=== PATIENT | male | born 1990 | race Caucasian/White ===

== ENCOUNTER 2020-09-06 17:25 | Emergency (ER) | payer BC ==
[~2020-09-06] VITALS: Ht 177.8 cm; Wt 113.4 kg
--- OUTSIDE RECORDS SUMMARY | ~2020-09-06 | XMS | Encounter Summary ---
Demographics + + + | Address | [address] | | | [place] [address] | + + + | Home Phone | | + + + | Preferred Language | Unknown | + + + | Marital Status | Single | + + + | Jewish Affiliation | Unknown | + + + | Race | White | + + + | Ethnic Group | Not or | + + + Author + + + | Author | [facility] | | | and [place] | + + + | Organization | [facility] | | | and [place] | + + + | Address | Unknown | + + + | Phone | Unavailable | + + + Support + + +---------+ + | Name | Relationship | Address | Phone | + + +---------+ + | Cecelia Well | ECON | Unknown | | + + +---------+ + Care Team Providers + +------+ + | Care Food Safety Technician Name | Role | Phone | + +------+ + | Karol Cordoba | PCP | | + +------+ + Reason for Visit +--------+--------+ + | Reason | Onset | Comments | | | Date | | +--------+--------+ + | Other | 09/21/ | opened in error | | | 2019 | | +--------+--------+ + Encounter Details +--------+ + + + + | Date | Type | Department | Care Team | Description | +--------+ + + + + | 09/21/ | Telephone | [facility] | Garrett Liza | Melina (opened in | | 2019 | | ENDOCRINOLOGY [address] | M, Traffic Circuit Engineer | bradly) | | | | [address] [address] | | | | | | [place] | | | | | | [address] | | | | | | [phone] | | | +--------+ + + + + Social History + +-------+ +--------+------+ | Tobacco Use | Types | Packs/Day | Years | Date | | | | | Used | | + +-------+ +--------+------+ | Never Smoker | | | | | + +-------+ +--------+------+ + + + | Sex Assigned at | Date Recorded | | | | + + + | Not on file | | + + + documented as of this encounter Miscellaneous Notes Telephone Encounter - Liza Tucker Traffic Circuit Engineer - 09/27/2019 9:24 AM PSTOpened in error A M PSTdocumented in this encounter Plan of Treatment Not on filedocumented as of this encounter Visit Diagnoses Not on filedocumented in this encounter"
--- OUTSIDE RECORDS SUMMARY | ~2020-09-06 | XMS | Encounter Summary ---
Demographics + + + | Address | [address] | | | [place] [address] | + + + | Home Phone | | + + + | Preferred Language | Unknown | + + + | Marital Status | Single | + + + | Holiness Affiliation | Unknown | + + + | Race | White | + + + | Ethnic Group | Not or | + + + Author + + + | Author | [facility] | | | and [place] | + + + | Organization | [facility] | | | [...] Team Providers + +------+ + | Care Bead Picker Name | Role | Phone | + +------+ + | Karol Cordoba | PCP | | + +------+ + Encounter Details +--------+ + + + + | Date | Type | Department | Care Team | Description | +--------+ + + + + | 12/12/ | Orders Only | [facility] | Bunny Chandler, | | | 2019 | | ENDOCRINOLOGY [address] | MD [address] | | | | | [place] | [place], | | | | | [place] | [place] [address] | | | | | [address] | [phone] | | | | | [phone] | | | +--------+ + + + [...] + + documented as of this encounter Plan of Treatment Not on filedocumented as of this encounter Visit Diagnoses Not on filedocumented in this encounter"
--- OUTSIDE RECORDS SUMMARY | ~2020-09-06 | XMS | Encounter Summary ---
Demographics + + + | Address | [address] | | | [place] [address] | + + + | Home Phone | | + + + | Preferred Language | Unknown | + + + | Marital Status | Single | + + + | Christianity Affiliation | Unknown | + + + | Race | White | + + + | Ethnic Group | Not or | + + + Author + + + | Author | [facility] | | | and [place] | + + + | Organization | [facility] | | | [...] Team Providers + +------+ + | Care Territory Sales Manager Medical Name | Role | Phone | + +------+ + | Karol Cordoba | PCP | | + +------+ + Reason for Visit + +--------+ + | Reason | Onset | Comments | | | Date | | + +--------+ + | Medication Refill | 09/04/ | | | | 2018 | | + +--------+ + Encounter Details +--------+ + + + + | Date | Type | Department | Care Team | Description | +--------+ + + + + | 09/04/ | Telephone | [facility] | Bunny Chandler, | Medication Refill | | 2019 | | ENDOCRINOLOGY [address] | [address] | | | | | [address] | [place], | | | | | [place], [place] | [place] [address] | | | | | [address] | [phone] | | | | | [phone] | | | +--------+ + + + [...] documented as of this encounter Miscellaneous Notes Addendum Note - Bunny Chandler MD - 09/06/2019 3:48 PM PDT Addended by: BUNNY CHANDLER on: 09/06/2019 15:48 Modules accepted: Orders elephone Encounte r - Bunny Chandler MD - 09/06/2019 3:48 PM PDTPrescription sent. elephone Encounter - Nely Riojas - 09/04/2019 2:32 PM PDTPharmacy: [facility], is calling regarding Medication Refill and is requesting the following: Medication requested: testosterone (ANDROGEL) 50 mg/5 g (1%) gel Quantity requested: 30 day supply If not a controlled substance, has patient called the pharmacy and checked that Rx is not a lready there: Yes Caller is aware of 24-48 hour wait time per refill policy: Yes States that prescription was sent to [facility] in [place] and cannot transfer since it's a control substance. Needing it to be sent to correct pharmacy documented in this encounter Plan of Treatment Not on filedocumented as of this encounter Visit Diagnoses Not on filedocumented in this encounter"
--- OUTSIDE RECORDS SUMMARY | ~2020-09-06 | XMS | Encounter Summary ---
Demographics + + + | Address | [address] | | | [place] [address] | + + + | Home Phone | | + + + | Preferred Language | Unknown | + + + | Marital Status | Single | + + + | Latter Day Affiliation | Unknown | + + + | Race | White | + + + | Ethnic Group | Not or | + + + Author + + + | Author | [facility] | | | and [place] | + + + | Organization | [facility] | | | and [...] Team Providers + +------+ + | Care Excelsior Cutter Name | Role | Phone | + +------+ + | Karol Cordoba | PCP | | + +------+ + Reason for Visit +---------+--------+ + | Reason | Onset | Comments | | | Date | | +---------+--------+ + | Results | 10/17/ | | | | 2019 | | +---------+--------+ + Encounter Details +--------+ + + + + | Date | Type | Department | Care Team | Description | +--------+ + + + + | 10/17/ | Telephone | [facility] | Bunny Chandler Martha, | Results | | 2019 | | ENDOCRINOLOGY [address] | MD [address] | | | | | [address] | [place], | | | | | [place], [place] | [place] [address] | | | | | [address] | [phone] | | | | | [phone] | | | +--------+ + + + + Social History + +-------+ +--------+------+ | Tobacco Use | Types | Packs/Day | Years | Date | | | | | Used | | + +-------+ +--------+------+ | Never Smoker | | | | | + +-------+ +--------+------+ + +---+---+---+ | Smokeless Tobacco: | | | | | Never Used | | | | + +---+---+---+ + + + | Sex Assigned at | Date Recorded | | | | + + + | Not on file | | + + + documented as of this encounter Miscellaneous Notes Telephone Encounter - Liza Tucker Metal Drawer - 10/17/2019 11:49 AM PSTI call ed the patient. I went over below information. Patient understood. el ephone Encounter - Bunny Chandler MD - 10/17/2019 10:13 AM PSTPlease call Judd and let him know that I received his lab results. Testosterone levels were low, so going ahead and increasing the testosterone dose and takin g this every day would be appropriate. Thanks! Labs dated 10/12/19: Testosterone 188 A1C 5.4% Hct 45.1 documented i n this encounter Plan of Treatment Not on filedocumented as of this encounter Visit Diagnoses Not on filedocumented in this encounter"
--- OUTSIDE RECORDS SUMMARY | ~2020-09-06 | XMS | Encounter Summary ---
Demographics + + + | Address | [address] | | | [place] [address] | + + + | Home Phone | | + + + | Preferred Language | Unknown | + + + | Marital Status | Single | + + + | Catholic Affiliation | Unknown | + + + [...] Team Providers + +------+ + | Care Branch Office Manager Name | Role | Phone | + +------+ + | Karol Cordoba | PCP | | + +------+ + Reason for Visit + +--------+ + | Reason | Onset | Comments | | | Date | | + +--------+ + | Medication Refill | 09/25/ | issue | | | 2018 | | + +--------+ + | Medication Refill | 09/27/ | | | | 2019 | | + +--------+ + Encounter Details +--------+--------+ + + + | Date | Type | Department | Care Team | Description | +--------+--------+ + + + | 09/25/ | Refill | [facility] | Bunny Chandler, | Medication Refill | | 2019 | | ENDOCRINOLOGY [address] | MD [address] | (issue ); Medication | | | | [place] | [facility], | Refill | | | | [place] | [place] [address] | | | | | [address] | [phone] | | | | | [phone] | | | +--------+--------+ + + + Social History + +-------+ [...] this encounter Miscellaneous Notes Telephone Encounter - Danielle Maciel Credit And Loan Collections Supervisor - 09/27/2019 4:25 PM PSTLabs fa x to [facility] in [place] with confirmation. Danielle ASIF dde ndum Note - Bunny Chandler MD - 09/27/2019 3:14 PM PST Addended by: BUNNY CHANDLER on: 09/27/2019 15:14 Modules accepted: Orders elephone Encounte r - Bunny Chandler MD - 09/27/2019 3:13 PM PSTLab orders printed, could you fax them? Thanks elephone Enco chano - Haritha Guillaume - 09/27/2019 2:58 PM PSTScheduled pt for 10/03. He asked if lab orde rs can be sent/faxed for him to [facility] in [place], [place]. elephone Encounter - Liza Tucker Medical Assistan nida - 09/25/2019 4:34 PM PSTPhone number on file is disconnected. elephone Encounter - Cyrus camposBridgette arevalo - 09/25/2019 3:03 PM PSTAmanda, is calling regarding Medication Refill (iss ue ) and would like a call back. Additional Call Details: requesting call back regarding refill issues. She is also requesting patient be seen as geri n as possible. If this is a symptom based call, was patient offered triage? Not Applicable If this is a symptom based call and you were unable to immediately transfer the call to a p darinel supervisor agency appointments was caller made aware that if at any time he feels it is an emergency they robert uld call 911 or go to the nearest emergency room? 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
--- OUTSIDE RECORDS SUMMARY | ~2020-09-06 | XMS | Encounter Summary ---
Demographics + + + | Address | [address] | | | [place] [address] | + + + | Home Phone | | + + + | Preferred Language | Unknown | + + + | Marital Status | Single | + + + | Latter-Day Affiliation | Unknown | + + + | Race | White | + + + | Ethnic Group | Not or | + + + Author + + + | Author | [facility] | | | and [place] | + + + | Organization | [facility] | | | [...] Team Providers + +------+ + | Care Airport Attendant Name | Role | Phone | + +------+ + PCP | Unavailable | + +------+ + Encounter Details +--------+ + + + + | Date | Type | Department | Care Team | Description | +--------+ + + + + | 05/13/ | Hospital | [facility] | | | | 1999 - | Encounter | MED CTR GENERIC IP | | | | | | CONV DEPT [address] | | | | 05/14/ | | [place], | | | | 2000 | | [place] [address] | | | | | | [phone] | | | +--------+ + + + + Social History + +-------+ +--------+------+ | Tobacco Use | Types | Packs/Day | Years | Date | | | | | Used | | + +-------+ +--------+------+ | Never Assessed | | | | | + +-------+ [...]
--- OUTSIDE RECORDS SUMMARY | ~2020-09-06 | XMS | Encounter Summary ---
Demographics + + + | Address | [address] | | | [place] [address] | + + + | Home Phone [...] Author + + + | Author | [facility] | | | and [place] | + + + | Organization | [facility] | | [...] Team Providers + +------+ + | Care Jacquard Plate Maker Name | Role | Phone | + +------+ + | Karol Cordoba | PCP | | + +------+ + Encounter Details +--------+ + + + + | Date | Type | Department | Care Team | Description | +--------+ + + + + | 08/31/ | Orders Only | [facility] | Bunny Chandler, | | | 2017 | | [address] | [address] | | | | | [place] | [place], | | | | | [address] | [place] [address] | | | | | [phone] | [phone] | | | | | | | | +--------+ + + + [...] + + documented as of this encounter Progress Notes Bunny Chandler MD - 08/31/2017 12:18 PM PDTFormatting of this note might be differ ent from the original. Progress Notes by Bunny Chandler MD at 08/31/17 3425 Author: Bunny Chandler MD Service: (none) Author Type: Physician Filed: 09/02/17 0859 Encounter Date: 08/31/2017 Status: Signed Veterans Adviser: Bunny Chandler MD (Physician) Could you please call Judd and let him know that his labs show that his testosterone leve l is much improved. It is still at the low range of normal, but as his symptoms are much be tter I don't think that we necessarily need to increase the dose. If he wants to try increa sing the dose though to see if he feels better, I think that would be okay to try. There is room to increase the dose and still stay in the normal range. I would suggest applying 3 p umps a day instead of two if he wants to try this. Thanks! documented in this encounter Plan of Treatment Not on filedocumented as of this encounter Procedures + +--------+ + + + | Procedure Name | Priori | Date/Time | Associated Diagnosis | Comments | | | ty | | | | + +--------+ + + + | HEMOGLOBIN AND | Routin | 08/31/2017 | | Results for this | | HEMATOCRIT | e | 12:35 PM | | procedure are in the | | | | PDT | | results section. | + +--------+ + + + | TESTOSTERONE, TOTAL | Routin | 08/31/2017 | | Results for this | | | e | 12:35 PM | | procedure are in the | | | | PDT | | results section. | + +--------+ + + + documented in this encounter Results Hemoglobin and Hematocrit (08/31/2017 12:35 PM PDT) + +-------+ + + + | Component | Value | Ref Range | Performed | Pathologist | | | | | At | Signature | + +-------+ + + + | Hemoglobin | 14.3 | 13.2 - 17.0 | EXTERNAL | | | | | g/dL | LAB | | + +-------+ + + + | Hematocrit, | 42.3 | 39.0 - 50.0 % | EXTERNAL | | | POC | | | LAB | | + +-------+ + + + + + | Specimen | + + | | + + + +---------+ + + | Performing | Address | City/State/Zipcode | Phone Number | | Organization | | | | + +---------+ + + | EXTERNAL LAB | | | | + +---------+ + + Testosterone, Total (08/31/2017 12:35 PM PDT) + +-------+ + + + | Component | Value | Ref Range | Performed | Pathologist | | | | | At | Signature | + +-------+ + + + | TESTOSTERON | 324 | 249 - 836 ng/dL | EXTERNAL | | | E TOTAL | | | LAB | | + +-------+ + + + + + | Specimen | + + | Blood specimen | | (specimen) | + + + +---------+ + + | Performing | Address | City/State/Zipcode | Phone Number | | Organization | | | | + +---------+ + + | EXTERNAL LAB | | | | + +---------+ + + documented in this encounter Visit Diagnoses Not on filedocumented in this encounter"
--- OUTSIDE RECORDS SUMMARY | ~2020-09-06 | XMS | Encounter Summary ---
Demographics + + + | Address | [address] | | | [place] [address] | + + + | Home Phone | | + + + | Preferred Language | Unknown | + + + | Marital Status | Single | + + + | Episcopalian Affiliation | Unknown | + + + | Race | White | + + + | Ethnic Group | Not or | + + + Author + + + | Author | [facility] | | | and [place] | + + + | Organization | [facility] | | [...] Team Providers + +------+ + | Care Industrial Safety And Health Technician Name | Role | Phone | + +------+ + | Karol Cordoba | PCP | | + +------+ + Reason for Visit +--------+--------+ + | Reason | Onset | Comments | | | Date | | +--------+--------+ + | Other | 10/04/ | FINESSE for Testosterone | | | 2019 | | +--------+--------+ + Encounter Details +--------+ + + + + | Date | Type | Department | Care Team | Description | +--------+ + + + + | 10/04/ | Telephone | [facility] | Bunny Chandler, | Other (FINESSE for | | 2019 | | ENDOCRINOLOGY [address] | [address] | Testosterone) | | | | [address] | [place], | | | | | [place], [place] | [place] [address] | | | | | [address] | [phone] | | | | | [phone] | | | +--------+ + + + [...] Miscellaneous Notes Telephone Encounter - Liza Tucker Remedial Project Manager - 10/08/2019 2:36 PM PSTI call ed the patient. I went over below information. Patient understood. el ephone Encounter - Liza Tucker Remedial Project Manager - 10/08/2019 9:51 AM PSTI called t he patient. I was unable to leave a message due to voicemail being full. Electronically sign ed by Fara Gaona at 10/08/2019 9:52 AM PSTTelephone Encounter - Bunny Holm MD - 10/08/2019 8:34 AM PSTPlease call Judd and let him know this inform ation. He needs to have the testosterone done JANET so that we can get this cleared with his insurance. Please ask if he still has the lab orders from his visit, if not we will need to fax in a n ew order to his lab. Thanks! elephone Enc Danielle Crowley Remedial Project Manager - 10/08/2019 8:17 AM Matthew received a call fr om the prior authorization for the Testosterone. The medication was denied under the insuran ce but the insurance states they may consider a reconsideration if the patient has had a thiago tosterone serum test in the last 180 days. She states that we have 10 days from today to sub [facility] addition information by calling [phone] ref [id number]. Danielle ASIF ele phone Encounter - Liza Tucker Medical Assistant - 10/08/2019 8:14 AM PSTPatient was denied. Denial placed in Dr. Chandler's in basket. elephone Encounter - Liza Tucker [facility] adore Agricultural Aircraft Pilot - 10/04/2019 12:26 PM PSTReceived a notice from patient's pharmacy that the pa tient is needing a PA for Testosterone. I submitted the PA via Covermymeds. Waiting on a res ponse. (Ramos: [id number]) [id number] signed by Fara Gaona 10/04/2019 12:37 PM PSTdocumented in this encounter Plan of Treatment Not on filedocumented as of this encounter Visit Diagnoses Not on filedocumented in this encounter"
--- OUTSIDE RECORDS SUMMARY | ~2020-09-06 | XMS | Encounter Summary ---
Demographics + + + | Address | [address] | | | [place] [address] | + + + | Home Phone | | + + + | Preferred Language | Unknown | + + + | Marital Status | Single | + + + | Druze Affiliation | Unknown | + + + | Race | White | + + + | Ethnic Group | Not or | + + + Author + + + | Author | [facility] | | | and [place] | + + + | Organization | [facility] | | | [...] Team Providers + +------+ + | Care Quarrying Manager Name | Role | Phone | + +------+ + | Karol Cordoba | PCP | | + +------+ + Reason for Visit + + + | Reason | Comments | + + + | Medication Refill | | + + + Encounter Details +--------+--------+ + + + | Date | Type | Department | Care Team | Description | +--------+--------+ + + + | 05/10/ | Refill | [facility] | Bunny Chandler, | Medication Refill | | 2019 | | ENDOCRINOLOGY [address] | MD [address] | | | | | [address] | [place], | | | | | [place], [place] | [place] [address] | | | | | [address] | [phone] | | | | | [phone] | | | +--------+--------+ + + + [...]
--- OUTSIDE RECORDS SUMMARY | ~2020-09-06 | XMS | Encounter Summary ---
Demographics + + + | Address | [address] | | | [place] [address] | + + + | Home Phone | | + + + | Preferred Language | Unknown | + + + | Marital Status | Single | + + + | Orthodox Affiliation | Unknown | + + + | Race | White | + + + | Ethnic Group | Not or | + + + Author + + + | Author | [facility] | | | and [place] | + + + | Organization | [facility] | | | and [...] Team Providers + +------+ + | Care Insurance Risk Analyst Name | Role | Phone | + +------+ + | Karol Cordoba | PCP | | + +------+ + Reason for Visit + +--------+ + | Reason | Onset | Comments | | | Date | | + +--------+ + | Medication | 10/30/ | | | Management | 2019 | | + +--------+ + | Other | 10/30/ | Returned Call | | | 2019 | | + +--------+ + Encounter Details +--------+ + + + + | Date | Type | Department | Care Team | Description | +--------+ + + + + | 10/30/ | Telephone | [facility] | Bunny Chandler, | Medication | | 2019 | | ENDOCRINOLOGY [address] | [address] | Management; Other | | | | [address] | [facility] [facility], | (Returned Call ) | | | | [place] | [place] [address] | | | | | [phone] | [phone] | | | | | [phone] | | | +--------+ + + + [...] encounter Miscellaneous Notes Telephone Encounter - Liza Tucker, Branch Associate - 11/09/2019 10:44 AM PSTI call ed the patient. I went over below information. Patient understood. He has been on the injections before. No need for training. elephone Encounter - Hill Anne asa - 11/09/2019 10:03 AM PSTAmanda, is returning call for Medication Management and Other (Returned Call ) and would like a call back. Additional Call Details: edu Rai, Returning call, call back number (confirm # to call back). elephone Encounter - Liza Tucker Branch Associate - 11/09/2019 9:54 AM PSTI submitted a PA via [facility] Patient was approved. I called the patient's spouse to let her know and discuss below i nformation. Left a message to call back. ddendum Note - Bunny Chandler MD - 11/08/2019 12:1 7 PM PST Addended by: BUNNY CHANDLER on: 11/08/2019 12:17 PM Modules accepted: Orders elephone Encounte r - Bunny Chandler MD - 11/08/2019 12:12 PM PSTI will send in a prescription for testoste zachery as well as the supplies needed for the injection. Are they familiar with how to take the injections? If not, we can set them up with a nurse to learn how to do this. Thanks! elephone Enc destineyntkatarzyna - Liza Tucker Branch Associate - 11/08/2019 10:15 AM PSTI spoke with the pat ient spouse. They are ok with injections. elephone Encounter - Bunny Chandler MD - 9 7:30 PM PSTDo we have any indication that there is a preferred testosterone gel that woul d cost less? If not, could you check with the patient and see if they are willing to consider treatment with injectable testosterone. Thanks! elephone Encounter - Liza Tucker Branch Associate - 11/06/2019 4:34 PM PSTPatient's spouse called. Th e Rx is going to be $250. They can not afford this. Is there something less expensive that c an be sent in? Please advise. elephone Encounter - Liza Tucker Branch Associate - 11/06/2019 9:19 A M PSTPatient was approved. I called the pharmacy and let them know. They stated that they wi ll call the patient. Electronically signed by Liza Tucker Branch Associate at 2018 9:24 AM PSTTelephone Encounter - Liza Tucker Medical Assistant - 11/06/2019 8 :55 AM PSTI did go ahead and submit a PA with the new information. elephone Encounter - Bunny Chandler MD - 10/31/2019 4:10 PM PSTI see the results listed in the phone message from No vember 27. Could we resubmit the prior authorization with this information? Thanks! elephone Enc Danielle Crowley Branch Associate - 10/31/2019 2:32 PM PSTPatient called and I went over the information per Dr. Bunny Chandler. He states that he had labs done 10/12/19 an d we called him with the results. See telephone encounter . Please advise.Danielle Davis ght YEFRI ele phone Encounter - Liza Tucker Medical Assistant - 10/31/2019 12:30 PM PSTI called th e patient. Unable to leave a message to call back. el ephone Encounter - Bunny Chandler MD - 10/30/2019 7:50 AM PSTPlease call Judd and let him know that I received a notice from his insurance company that they will not cover the te stosterone prescription until he has had his level checked. As such, I would encourage him to go ahead and go to the lab to check his testosterone level. Which lab would he like to go to for this so we can send them an order? Thanks! documented in this encounter Plan of Treatment Not on filedocumented as of this encounter Visit Diagnoses Not on filedocumented in this encounter"
--- OUTSIDE RECORDS SUMMARY | ~2020-09-06 | XMS | Encounter Summary ---
Demographics + + + | Address | [address] | | | [place] [address] | + + + | Home Phone | | + + + | Preferred Language | Unknown | + + + | Marital Status | Single | + + + | Anabaptist Affiliation | Unknown | + + + | Race | White | + + + | Ethnic Group | Not or | + + + Author + + + | Author | [facility] | | | and [place] | + + + | Organization | [facility] | | | [...] Team Providers + +------+ + | Care Yarn Weight And Strength Tester Name | Role | Phone | + +------+ + | Karol Cordoba | PCP | | + +------+ + Encounter Details +--------+ + + + + | Date | Type | Department | Care Team | Description | +--------+ + + + + | 07/06/ | Orders Only | [facility] | Bunny Chandler, | Testicular | | 2019 | | ENDOCRINOLOGY [address] | MD [address] | hypofunction | | | | [address] | [place], | | | | | [place] | [place] [address] | | | | | [address] | [phone] | | | | | [phone] | | | +--------+ + + + [...] + | Diagnosis | + + | Testicular hypofunction Other testicular hypofunction | + + documented in this encounter"
--- OUTSIDE RECORDS SUMMARY | ~2020-09-06 | XMS | Clinical Summary ---
Demographics + + + | Address | [address] | | | [place] [address] | + + + | Home Phone [...] Author + + + | Author | [facility] | | | and [place] | + + + | Organization | [facility] | | [...] Team Providers + +------+ + | Care Sort Manager Name | Role | Phone | + +------+ + | Karol Cordoba | PCP | | + +------+ + Allergies + + + + + + | Active Allergy | Reactions | Severity | Noted | Comments | | | | | Date | | + + + + + + | Penicillins | Other (See Comments) | Medium | 06/01/20 | " does not know" | | | | | 17 | | + + + + + + Medications + + + +---------+------+------+-------+ | Medication | Sig | Dispensed | Refills | Star | End | Statu | | | | | | t | Date | s | | | | | | Date | | | + + + +---------+------+------+-------+ | DULoxetine | 60 mg. | | 2 | 10/1 | | Activ | | (CYMBALTA) [address] | | | | 0/20 | | e | | capsule | | | | 19 | | | + + + +---------+------+------+-------+ | testosterone | Apply 1 Application | 150 g | 5 | 11/1 | | Activ | | (ANDROGEL) 50 mg/5 g | topically every | | | 3/20 | | e | | (1%) gel | morning. | | | 19 | | | + + + +---------+------+------+-------+ | Tuberculin-Allergy | 1 each by Does not | 25 each | 1 | 12/1 | | Activ | | Syringes (B-D TB | apply route Once a | | | 9/20 | | e | | SYRINGE 1CC/21GX1") | week. | | | 19 | | | | 21G X 1" 1 ML MISC | | | | | | | + + + +---------+------+------+-------+ | testosterone | INJECT 1/2 ML | 2 mL | 5 | 06/2 | | Activ | | cypionate | INTRAMUSCULARLY | | | 2/20 | | e | | (DEPO-TESTOSTERONE) | EVERY 7 DAYS | | | 20 | | | | 200 mg/mL injection | | | | | | | + + + +---------+------+------+-------+ Active Problems No known active problems Family History + + +------+ + | Medical History | Relation | Name | Comments | + + +------+ + | Heart disease | Maternal | | | | | Grandfath | | | | | er | | | + + +------+ + | Hypertension | Maternal | | | | | Grandfath | | | | | er | | | + + +------+ + | Depression | Maternal | | | | | Grandmoth | | | | | er | | | + + +------+ + | Cancer | Paternal | | | | | Grandfath | | | | | er | | | + + +------+ + | Heart disease | Paternal | | | | | Grandfath | | | | | er | | | + + +------+ + | Hypertension | Paternal | | | | | Grandfath | | | | | er | | | + + +------+ + | Cancer | Paternal | | | | | Grandmoth | | | | | er | | | + + +------+ + + +------+--------+ + | Relation | Name | Status | Comments | + +------+--------+ + | Maternal Grandfather | | | | + +------+--------+ + | Maternal Grandfather | | | | + +------+--------+ + | Maternal Grandmother | | | | + +------+--------+ + | Maternal Grandmother | | | | + +------+--------+ + | Paternal Grandfather | | | | + +------+--------+ + | Paternal Grandfather | | | | + +------+--------+ + | Paternal Grandmother | | | | + +------+--------+ + | Paternal Grandmother | | | | + +------+--------+ + Social History + +-------+ +--------+------+ | [...] on file | | + + + Last Filed Vital Signs + + + + + | Vital Sign | Reading | Time Taken | Comments | + + + + + | Blood Pressure | 128/76 | 10/03/2019 4:03 PM | | | | | PST | | + + + + + | Pulse | 64 | 10/03/2019 4:03 PM | | | | | PST | | + + + + + | Temperature | - | - | | + + + + + | Respiratory Rate | - | - | | + + + + + | Oxygen Saturation | 98% | 10/03/2019 4:03 PM | | | | | PST | | + + + + + | Inhaled Oxygen | - | - | | | Concentration | | | | + + + + + | Weight | 112.1 kg (247 lb 1.6 | 10/03/2019 4:03 PM | | | | oz) | PST | | + + + + + | Height | - | - | | + + + + + | Body Mass Index | - | - | | + + + + + Plan of Treatment + + + + + | Health Maintenance | Due Date | Last | Comments | | | | Done | | + + + + + | Hepatitis C | | | | | Screening | 9 | | | + + + + + | Med Mgmt: Cr | | | | | | 9 | | | + + + + + | Med Mgmt: eGFR | | | | | | 9 | | | + + + + + | Medication | | | | | Management | 9 | | | + + + + + | Vaccine: | | 11/06/20 | | | Dtap/Tdap/Td (6 - | 0 | 02, | | | Tdap) | | 07/27/19 | | | | | 94, | | | | | 05/21/19 | | | | | 91, | | | | | Addition | | | | | al | | | | | history | | | | | exists | | + + + + + | Vaccine: Influenza | | 08/26/20 | | | (#1) | 0 | 16, | | | | | 09/17/20 | | | | | 14, | | | | | 09/04/20 | | | | | 13, | | | | | Addition | | | | | al | | | | | history | | | | | exists | | + + + + + Results Not on filefrom Last 3 Months Insurance +-------+--------+ +--------+-------+---------+------+ | Payer | Benefi | Subscriber | Effect | Phone | Address | Type | | | t Plan | ID | jethro | | | | | | / | | Dates | | | | | | Group | | | | | | +-------+--------+ +--------+-------+---------+------+ | BCBS | BCBS | [id number] | 04/21/20 | | | PPO | | | OOS | 0 | 19-Pre | | | | | | PPO | | sent | | | | +-------+--------+ +--------+-------+---------+------+ + +--------+ +--------+ + + | Guarantor Name | Accoun | Relation to | Date | Phone | Billing Address | | | t Type | Patient | of | | | | | | | | | | + +--------+ +--------+ + + | Judd Pimentel | Person | Self | [birth year] | [address] | | | al/Fam | | 1989 | [phone] | [place] [address] | | | lisa | | | 1 (Home) | | + +--------+ +--------+ + + Advance Directives + + + + + | Type | Date Recorded | Patient | Explanation | | | | Clip Coater | | + + + + + | Power of | | | | | Composition Molder | | | | + + + + + | Advance | | | | | Directive | | | | + + + + +
--- OUTSIDE RECORDS SUMMARY | ~2020-09-06 | XMS | Encounter Summary ---
Demographics + + + | Address | [address] | | | [place] [address] | + + + | Home Phone | | + + + | Preferred Language | Unknown | + + + | Marital Status | Single | + + + | Evangelical Affiliation | Unknown | + + + | Race | White | + + + | Ethnic Group | Not or | + + + Author + + + | Author | [facility] | | | and [place] | + + + | Organization | [facility] | | [...] Team Providers + +------+ + | Care Rawhide Bone Roller Name | Role | Phone | + +------+ + | Karol Cordoba | PCP | | + +------+ + Reason for Visit + + + | Reason | Comments | + + + | Follow-up | | + + + Encounter Details +--------+---------+ + + + | Date | Type | Department | Care Team | Description | +--------+---------+ + + + | 10/03/ | Office | [facility] | Bunny Chandler Martha, | Hypogonadism male | | 2019 | Visit | ENDOCRINOLOGY [address] | MD [address] | (Primary Dx) | | | | [address] | [place], | | | | | [place], [place] | [place] [address] | | | | | [address] | [phone] | | | | | [phone] | | | +--------+---------+ + + + Social History + +-------+ [...] + + documented as of this encounter Last Filed Vital Signs + + + [...] | | + + + + + documented in this encounter Patient Instructions Patient Instructions Bunny Chandler MD - 10/03/2019 3:40 PM PSTWe will plan on seeing y ou again in clinic in 1 year. Please have your labs drawn in 2 months. If you have any questions or concerns between visits, please feel free to contact the [facility]. documented in this encounter Progress Notes Bunny Chandler MD - 10/03/2019 3:40 PM PSTFormatting of this note might be different fr om the original. [facility] Endocrinology Return Visit CHIEF COMPLAINT: Hypogonadism HISTORY OF PRESENT ILLNESS Judd Pimentel is a 28 y.o. male who was last seen approximately 10 months ago and is here to follow-up regarding hypogonadism. This history was obtained from the patient as well as review of medical records. To summarize his records, he has past medical history that is s ignificant for anxiety and depression as well as hypogonadism. He is tried both topical a s well as intramuscular testosterone. The intramuscular injections of testosterone were int olerable. At his last visit we switched to topical testosterone. Since being seen last, he reports that he has been too busy to regularly take the topical t estosterone. Without the testosterone he has noted that his energy level is lower. While o n therapy he denies that he expenses any side effects or symptoms that would suggest complic ations from therapy. FAMILY HISTORY Family History Problem Relation Age of Onset Depression Maternal Grandmother Heart disease Maternal Grandfather Hypertension Maternal Grandfather Cancer Paternal Grandmother Heart disease Paternal Grandfather Cancer Paternal Grandfather Hypertension Paternal Grandfather PAST MEDICAL/SURGICAL HISTORY Past Medical History: Diagnosis Date Depression Hypogonadism in male Past Surgical History: Procedure Laterality Date MOUTH SURGERY TONSILLECTOMY AND ADENOIDECTOMY SOCIAL HISTORY Social History Socioeconomic History Marital status: Single Spouse name: Not on file Number of children: Not on file Years of education: Not on file Highest education level: Not on file Occupational History Not on file Social Needs Financial resource strain: Not on file Food insecurity: Worry: Not on file Inability: Not on file Transportation needs: Medical: Not on file Non-medical: Not on file Tobacco Use Smoking status: Never Smoker Substance and Sexual Activity Alcohol use: Not on file Drug use: Not on file Sexual activity: Not on file Lifestyle Physical activity: Days per week: Not on file Minutes per session: Not on file Stress: Not on file Relationships Social connections: Talks on phone: Not on file Gets together: Not on file Attends sabianism service: Not on file Active member of club or organization: Not on file Attends meetings of clubs or organizations: Not on file Relationship status: Not on file Intimate partner violence: Fear of current or ex partner: Not on file Emotionally abused: Not on file Physically abused: Not on file Forced sexual activity: Not on file Other Topics Concern Not on file Social History Narrative Not on file MEDICATIONS Current Outpatient Medications: DULoxetine (CYMBALTA) [address] capsule, Take 1 capsule by mouth daily., Disp: 30 capsu le, Rfl: 11 testosterone (ANDROGEL) 50 mg/5 g (1%) gel, Apply 1 Application topically every mornin g., Disp: 150 g, Rfl: 5 REVIEW OF SYSTEMS No fevers or chills. Breathing comfortably. Denies chest pain. No recent urinary changes. Otherwise, ROS was reviewed in detail with the patient and is as per HPI or negative. PHYSICAL EXAM There were no vitals taken for this visit. Constitutional: alert and oriented, well groomed Eyes: anicteric, moist Ears, Nose, Mouth, Throat: normal thyroid contuors Respiratory: unlabored Musculoskeletal: no peripheral edema Skin: no rashes identified DATA Component Latest Ref Rng & Units 08/31/2017 TOTAL Hemoglobin 13.2 - 17.0 g/dL 14.3 Hematocrit, POC 39.0 - 50.0 % 42.3 TESTOSTERONE TOTAL 249 - 836 ng/dL 324 ASSESSMENT & PLAN Judd Pimentel is a pleasant 28 y.o. with hypogonadism. We talked about various treatment options that are available for testosterone replacement. After reviewing these options he would like to continue with topical testosterone. He plans on starting to take this every day again. A new prescription was sent in. If he notices any side effects or problems after being on the testosterone again he was encouraged to call us. I will check a testosterone level in 2 months to monitor this. Also check hemoglobin hemat ocrit levels to monitor for possible comp occasions. Judd has been a delightful patient to work with. Thank you for allowing me to participat e in his care. I will plan on seeing him again in 1 year. If you have any questions, pleas e do not hesitate to call. Bunny Chandler MD 10/03/2019 *This report has been prepared using a voice recognition system. The report was reviewed fo r accuracy, however, sound-alike word errors, addition and/or deletions may occur. If there is any question about this report please contact me. documented in this encounter Plan of Treatment + +------+--------+ + + | Name | Type | Priori | Associated Diagnoses | Order Schedule | | | | ty | | | + +------+--------+ + + | Testosterone, Total | Lab | Routin | Hypogonadism male | 1 Occurrences | | | | e | | starting 10/03/2019 | | | | | | until 10/03/2020 | + +------+--------+ + + | Hemoglobin and | Lab | Routin | Hypogonadism male | 1 Occurrences | | Hematocrit | | e | | starting 10/03/2019 | | | | | | until 10/03/2020 | + +------+--------+ + + documented as of this encounter Visit Diagnoses + + | Diagnosis | + + | Hypogonadism male - Primary Other testicular hypofunction | + + documented in this encounter"
--- OUTSIDE RECORDS SUMMARY | ~2020-09-06 | XMS | Encounter Summary ---
Demographics + + + | Address | [address] | | | [place] [address] | + + + | Home Phone | | + + + | Preferred Language | Unknown | + + + | Marital Status | Single | + + + | Zoroastrianism Affiliation | Unknown | + + + | Race | White | + + + | Ethnic Group | Not or | + + + Author + + + | Author | [facility] | | | and [place] | + + + | Organization | [facility] | | | and [...] Team Providers + +------+ + | Care Rehab Services Aide Name | Role | Phone | + +------+ + | Karol Cordoba | PCP | | + +------+ + Encounter Details +--------+ + + + + | Date | Type | Department | Care Team | Description | +--------+ + + + + | 04/18/ | Orders Only | [facility] | Bunny Chandler, | | | 2019 | | ENDOCRINOLOGY [address] | MD [address] | | | | | [address] | [place], | | | | | [place] | [place] [address] | | | | | [address] | [phone] | | | | | [phone] | | | +--------+ + + + [...]
[2020-09-06] MEDS ORDERED: DULOXETINE HCL60 MG PO (17:39)
[2020-09-06] MEDS ORDERED: TESTOSTERO200 MG/1 M IM (17:39)
[2020-09-06] MEDS ORDERED: NORCO 5-325 TA1 EACH PO (19:02)
[2020-09-06] MEDS ORDERED: ONDANSETRON ODT4 MG PO (19:02)
== END 2020-09-06 19:25 | disposition home or self-care (01) ==
LOC: ED 17:25
DX: N13.2 Hydronephrosis with renal and ureteral calculous obstruction (principal); F32.9 Major depressive disorder, single episode, unspecified; Z87.442 Personal history of urinary calculi; Z88.0 Allergy status to penicillin; Z79.899 Other long term (current) drug therapy
CPT/HCPCS: 74176; 80053; 81001; 85025; 96361; 96374; 96376; 99284-25; J1885; J7030

== ENCOUNTER 2021-01-03 16:54 | Emergency (ER) | payer BC ==
[~2021-01-03] VITALS: Ht 177.8 cm; Wt 113.9 kg
[~2021-01-03 16:54] MED LIST: DULOXETINE HCL60 MG PO; NORCO 5-325 TA1 EACH PO; ONDANSETRON ODT4 MG PO; TESTOSTERO200 MG/1 M IM
--- OUTSIDE RECORDS SUMMARY | 2021-01-03 16:58 | XMS ---
PreManage Notification: DASHA EASON Security Newspaper Photojournalist Events No recent Security Events currently on file CRITERIA MET - PDMP CARE PROVIDERS Karol Cordoba Nurse Practitioner: Family Current EARLY CHILDHOOD DIRECTOR PHONE: [phone] Abel has no Care Guidelines for this patient. Joseline VISIT COUNT (12 MO.) 2 [facility] TOTAL 2 NOTE: Visits indicate total known visits. ED/UCC VISIT TRACKING (12 MO.) 01/03/2021 16:56 [facility] [place] TYPE: Emergency COMPLAINT: - MOUTH SWELLING, FEVER, PAIN 09/06/2020 17:29 [facility] [place] TYPE: Emergency COMPLAINT: - POSSIBLE KIDNEY STONE DIAGNOSES: - Unspecified abdominal pain - Other longterm (current) drug therapy - Personal history of urinary calculi - Major depressive disorder, single episode, unspecified - Hydronephrosis with renal and ureteral calculous obstruction - Allergy status to penicillin INPATIENT VISIT TRACKING (12 MO.) No inpatient visits to display in this time frame [email or web address]
[2021-01-03] MEDS ORDERED: CLINDAMYCIN HC150 MG PO (17:14)
== END 2021-01-03 18:06 | disposition home or self-care (01) ==
LOC: ED 16:54
DX: K04.7 Periapical abscess without sinus (principal); Z88.0 Allergy status to penicillin; Z79.899 Other long term (current) drug therapy
CPT/HCPCS: 99282

== ENCOUNTER 2022-02-15 13:42 | Emergency (ER) | payer BC ==
[~2022-02-15] VITALS: Ht 177.8 cm; Wt 117.9 kg
[~2022-02-15 13:42] MED LIST changes: +CLINDAMYCIN HC150 MG PO
--- OUTSIDE RECORDS SUMMARY | 2022-02-15 13:44 | XMS ---
PreManage Notification: DASHA EASON Security Director Ge[employer] Events No recent Security Events currently on file CRITERIA MET - PDMP CARE PROVIDERS Karol Cordoba Nurse Practitioner: Family Current TEST DRILLER PHONE: Unknown Abel has no Care Guidelines for this patient. Joseline VISIT COUNT (12 MO.) 1 [facility] Gautam TOTAL 1 NOTE: Visits indicate total known visits. ED/UCC VISIT TRACKING (12 MO.) 02/15/2022 13:43 [facility] [place] TYPE: Emergency COMPLAINT: - L FLANK PAIN INPATIENT VISIT TRACKING (12 MO.) No inpatient visits to display in this time frame [email or web address]
[2022-02-15] MEDS ORDERED: HYDROCODON-ACE1 EA10 PO (16:41)
== END 2022-02-15 16:53 | disposition home or self-care (01) ==
LOC: ED 13:42
DX: N20.1 Calculus of ureter (principal); Z88.0 Allergy status to penicillin; Z79.899 Other long term (current) drug therapy
CPT/HCPCS: 81001; 96374; 99284-25; J1885

== ENCOUNTER 2022-02-17 19:40 | Emergency (ER) | payer BC ==
[~2022-02-17] VITALS: Ht 177.8 cm; Wt 125.0 kg
[~2022-02-17 19:40] MED LIST changes: +HYDROCODON-ACE1 EA10 PO
--- OUTSIDE RECORDS SUMMARY | 2022-02-17 19:42 | XMS ---
PreManage Notification: DASHA EASON Security Traveling Storekeeper Events No recent Security Events currently on file CRITERIA MET - [facility] - 2 Visits in 30 Days - PDMP CARE PROVIDERS Karol Cordoba Nurse Practitioner: Family Current SEX OFFENDER TREATMENT PROFESSIONAL PHONE: Unknown Abel has no Care Guidelines for this patient. Joseline VISIT COUNT (12 MO.) 2 [facility] TOTAL 2 NOTE: Visits indicate total known visits. ED/UCC VISIT TRACKING (12 MO.) 02/17/2022 19:40 [facility] [place] TYPE: Emergency COMPLAINT: - FLANK PAIN 02/15/2022 13:43 [facility] [place] TYPE: Emergency COMPLAINT: - L FLANK PAIN INPATIENT VISIT TRACKING (12 MO.) No inpatient visits to display in this time frame [id number]
[2022-02-17] MEDS ORDERED: ONDANSETRON ODT8 MG PO (21:43)
[2022-02-17] MEDS ORDERED: HYDROCODON-ACE1 EA10 PO (22:01)
== END 2022-02-17 22:18 | disposition home or self-care (01) ==
LOC: ED 19:40
DX: N13.2 Hydronephrosis with renal and ureteral calculous obstruction (principal); Z88.0 Allergy status to penicillin; Z79.899 Other long term (current) drug therapy
CPT/HCPCS: 36415; 74176; 80053; 81001; 83690; 85025; 96374; 96375; 96376; 99284-25; A9270; J1170; J1885; J2405; J7030

== ENCOUNTER 2024-12-21 20:48 | Emergency (ER) | payer BC ==
[~2024-12-21] VITALS: Ht 177.8 cm; Wt 128.8 kg
[~2024-12-21 20:48] MED LIST changes: +ONDANSETRON ODT8 MG PO
[2024-12-21] MEDS ORDERED: MORPHINE SULFATE 4 MG/ML VIAL IV ONE (21:15)
[2024-12-21] MEDS ORDERED: LACTATED RINGER'S 1,000 ML IV ONE (21:15)
[2024-12-21] MEDS ORDERED: ondansetron HCL 4 MG/2 ML VIAL IV ONE (21:15)
[2024-12-21 21:18] LABS: BASOPHILS 1.3 % (0-2); EOSINOPHILS 3.1 % (0-6); HEMATOCRIT 39.8 % (35.0-50.0); HEMOGLOBIN 13.5 g/dL (12.0-18.0); MCHC 33.9 g/dl (30-36); MCV 88.7 fl (81-99); MONOCYTES 8.2 % (0-12); NEUTROPHILS 60.4 % (39-80); PLATELET COUNT 402 K/uL (140-440); RBC 4.49 M/ul (4.3-5.7)
[2024-12-21 21:35] LABS: ALBUMIN/GLOBULIN RATIO 1.08 (1.1-2.4); ANION GAP 11.2 (7-21); BILIRUBIN, TOTAL 0.4 ng/dL (0.2-1.0); BUN/CREATININE RATIO 14.73 (6.0-28.6); CALCIUM 9.3 mg/dL (8.5-10.1); CREATININE, SERUM 0.95 mg/dL (0.55-1.02); POTASSIUM 3.2 mmol/L (3.5-5.1); PROTEIN, TOTAL 7.7 g/dL (6.4-8.2)
[2024-12-21 23:20] LABS: BILIRUBIN, URINE NEGATIVE (negative); BLOOD/HGB, URINE NEGATIVE (Negative); KETONE, URINE NEGATIVE (Negative); LEUK ESTERASE, URINE NEGATIVE (negative); NITRITE, URINE NEGATIVE (negative); PH, URINE 5.5 (5-7)
[2024-12-22 00:46] LABS: N. GONORRRHOEAE BY PCR NOT DETECTED (NOT DETECT)
[2024-12-22] MEDS ORDERED: ONDANSETRON ODT8 MG PO (02:20)
[2024-12-22] MEDS ORDERED: HYDROCODON-ACE1 EA10 PO (02:20)
[2024-12-22] MEDS ORDERED: FLOMAX0.4 MG PO (02:22)
[2024-12-22] MEDS ORDERED: TAMSULOSIN HCL 0.4 MG CAP PO ONE (02:30)
[2024-12-22] MEDS ORDERED: ONDANSETRON 4 MG HOME.PACK SL ONE (02:30)
[2024-12-22] MEDS ORDERED: HYDROCODONE BIT/ACETAMINOPHEN 5/325 MG 1 TAB HOME.PACK PO ONE (02:30)
[2024-12-22 02:46] VITALS: BP 145/94
== END 2024-12-22 02:47 | disposition home or self-care (01) ==
LOC: ED 20:48
PROVIDERS: Family Medicine
DX: N20.0 Calculus of kidney (principal); Z88.0 Allergy status to penicillin; Z79.899 Other long term (current) drug therapy
CPT/HCPCS: 36415; 74177; 76870; 80053; 81003; 85025; 96375; 99284-25; A9270; J2270; J2405; J7121; Q9967

== ENCOUNTER 2025-07-18 20:57 | Emergency (ER) | payer BC ==
[~2025-07-18] VITALS: Ht 177.8 cm; Wt 119.8 kg
[~2025-07-18 20:57] MED LIST changes: +FLOMAX0.4 MG PO
[2025-07-18] MEDS ORDERED: ZEPBOUND15 MG/0.5 (21:25)
[2025-07-18] MEDS ORDERED: DELESTROGE10 MG/1 ML IM (21:26)
[2025-07-18 21:27] LABS: BASOPHILS 0.6 % (0.1-1.2); EOSINOPHILS 19.4 % (0.7-5.8); LYMPHOCYTES 12.4 % (19.3-51.7); MCH 30.6 PG (25.6-32.2); MCHC 35.1 g/dL (32.2-35.5); MCV 87.1 fL (79.4-94.8); MONOCYTES 6.7 % (4.7-12.5); NEUTROPHILS 60.6 % (34.0-71.1); RBC 4.25 M/uL (3.93-5.22)
[2025-07-18] MEDS ORDERED: KETOROLAC TROMETHAMINE 30 MG/ML VIAL IV ONE (21:30)
[2025-07-18] MEDS ORDERED: FAMOTIDINE 20 MG/ 2 ML VIAL IV ONE (21:30)
[2025-07-18 21:43] LABS: ALT (SGPT) 22.0 U/L (14-59); AST (SGOT) 15.0 U/L (15-37); GLOMERULAR FILTRATION RATE,EST 94.0 mL/min (>60); PROTEIN, TOTAL 7.3 g/dL (6.4-8.2); UREA NITROGEN 13.0 mg/dL (7-18)
[2025-07-18 22:07] LABS: BLOOD/HGB, URINE NEGATIVE (Negative); KETONE, URINE SMALL (Negative); LEUK ESTERASE, URINE NEGATIVE (negative); NITRITE, URINE NEGATIVE (negative)
[2025-07-18 22:15] LABS: BACTERIA, URINE RARE /hpf (negative); CASTS, URINE NONE SEEN \\lpf; CRYSTALS, URINE NONE SEEN (0-1+); EPITHELIAL CELLS, URINE SQUAMOUS 1+ /lpf (0-1+)
[2025-07-18] MEDS ORDERED: MORPHINE SULFATE 4 MG/ML VIAL IV ONE (22:15)
[2025-07-18 22:16] LABS: REFLEX CULTURE, URINE No (No)
[2025-07-18] MEDS ORDERED: LIDOCAINE & ANTACID 35 ML BTL PO ONE (22:45)
[2025-07-18] MEDS ORDERED: LACTATED RINGER'S 1,000 ML IV ONE (22:45)
[2025-07-18] MEDS ORDERED: OMEPRAZOLE20 MG PO (23:58)
[2025-07-19 00:06] VITALS: BP 149/100
== END 2025-07-19 00:06 | disposition home or self-care (01) ==
LOC: ED 20:57
PROVIDERS: Internal Medicine
DX: R10.11 Right upper quadrant pain (principal); R10.13 Epigastric pain; E86.0 Dehydration; N20.0 Calculus of kidney; Z88.0 Allergy status to penicillin; Z79.890 Hormone replacement therapy; Z79.899 Other long term (current) drug therapy
CPT/HCPCS: 36415; 74177; 76705; 80053; 81001; 83690; 85025; 96374; 96375; 99284-25; J1885; J2270; J2405; J7121; Q9967